=== PATIENT | male | born 1985 | race Two or more races ===

== ENCOUNTER 2022-05-12 13:45 | Emergency (ER) | payer OTHER ==
[~2022-05-12] VITALS: Ht 190.5 cm; Wt 79.0 kg
[2022-05-12 13:54] VITALS: BP 125/72
== END 2022-05-12 15:03 ==
LOC: ER 13:45
DX: T24.002A Burn of unspecified degree of unspecified site of left lower limb, except ankle and foot, initial encounter (principal); X58.XXXA Exposure to other specified factors, initial encounter; Y93.89 Activity, other specified; Y92.89 Other specified places as the place of occurrence of the external cause; Y99.8 Other external cause status; Z00.00 Encounter for general adult medical examination without abnormal findings
CPT/HCPCS: 99283